=== PATIENT | male | born 1975 | race Hispanic/Latino ===

== ENCOUNTER 2021-06-10 06:12 | Day surgery (SDC) | payer OTHER ==
[~2021-06-10 06:12] MED LIST: BUPIVACAINE/PF (0.25%) 2.5 MG/ML 30 ML VIAL INFILTRATI ONE; LIDOCAINE (1%) 10 MG/1 ML VIAL 20 ML MDV INFILTRATI ONE; SODIUM CHLORIDE 0.9% IRR 1,500 ML BOTTLE IR ONE
[2021-06-10] MEDS ORDERED: LACTATED RINGERS 1,000 ML ONE (06:21)
[2021-06-10] MEDS ORDERED: ceFAZolin/STERILE WATER 2 GM/20 ML SYRINGE IV NR (07:00)
[2021-06-10] MEDS ORDERED: BUPIVACAINE/PF (0.25%) 2.5 MG/ML 30 ML VIAL INFILTRATI ONE ×3 (07:08→08:25)
[2021-06-10] MEDS ORDERED: LIDOCAINE (1%) 10 MG/1 ML VIAL 20 ML MDV ONE (07:08)
[2021-06-10] MEDS ORDERED: ROCURONIUM 50 MG/5 ML INJ IV ONE (07:18)
[2021-06-10] MEDS ORDERED: LIDOCAINE PF 100 MG/5 ML (CARDIAC SYRINGE) IV ONE (07:18)
[2021-06-10] MEDS ORDERED: propofoL 200 MG/20 ML VIAL IV ONE (07:19)
[2021-06-10] MEDS: GABAPENTIN 300 MG CAP PO NR ×2 (07:30→07:35)
[2021-06-10] MEDS ORDERED: GABAPENTIN 300 MG CAP PO NR (07:32)
--- NOTE | 2021-06-10 07:35 | Anesthesia Day of Surgery ---
Anesthesia Day of Surgery - Day of Surgery Patient Examined: Yes Patient H&P Reviewed: Yes Patient is NPO: Yes
--- NOTE | 2021-06-10 07:35 | Anesthesia Consultation ---
Anesthesia Consult and Med Hx Date of service: 06/10/21 - Airway Anesthetic Teeth Evaluation: Good ROM Head & Neck: Adequate Mental/Hyoid Distance: Adequate Mallampati Class: Class II Intubation Access Assessment: Probably Good - Pulmonary Exam CTA: Yes - Cardiac Exam Cardiac Exam: RRR - Pre-Operative Health Status ASA Pre-Surgery Classification: ASA2 Proposed Anesthetic Plan: General - Pulmonary Hx Smoking: No Hx Asthma: No Hx Respiratory Symptoms: No Hx Sleep Apnea: Yes (USES CPAP AT HOME) - Cardiovascular System Hx Hypertension: Yes (ON NORVASC AND ATENOLOL) Hx Coronary Artery Disease: No Hx Heart Attack/AMI: No - Central Nervous System Hx Neuromuscular Disorder: No Hx Psychiatric Problems: Yes (PTSD) - Gastrointestinal Hx Gastroesophageal Reflux Disease: No - Endocrine Hx Renal Disease: No Hx Liver Disease: No Hx Non-Insulin Dependent Diabetes: No Hx Thyroid Disease: No - Hematic Hx Anemia: No Hx Sickle Cell Disease: No - Other Systems Hx Alcohol Use: No Hx Substance Use: No Hx Cancer: No Hx Obesity: No - Additional Comments Anesthesia Medical History Comments: No hx of anesthetic complications
[2021-06-10] MEDS ORDERED: ACETAMINOPHEN 500 MG TAB PO NR (07:38)
[2021-06-10] MEDS ORDERED: HYDROmorphone 1 MG/1 ML INJ IV PRN (07:40)
[2021-06-10] MEDS ORDERED: ONDANSETRON 4 MG/2 ML INJ IV PRN (07:40)
[2021-06-10] MEDS ORDERED: fentaNYL 100 MCG/2 ML INJ ONE (07:56)
[2021-06-10] MEDS ORDERED: MIDAZOLAM 2 MG/2 ML INJ IV NR (08:00)
[2021-06-10] MEDS ORDERED: CELECOXIB 200 MG CAP PO NR (08:00)
[2021-06-10] MEDS ORDERED: dexAMETHasone 20 MG/5 ML VIAL ONE (08:16)
[2021-06-10] MEDS ORDERED: ePHEDrine SULFATE 50 MG/1 ML INJ ONE (08:20)
[2021-06-10] MEDS ORDERED: LIDOCAINE (1%) 10 MG/1 ML VIAL 20 ML MDV INFILTRATI ONE ×2 (08:25)
[2021-06-10] MEDS ORDERED: SODIUM CHLORIDE 0.9% IRR 1,500 ML BOTTLE IR ONE (08:25)
[2021-06-10] MEDS ORDERED: GLYCOPYRROLATE 0.4 MG/2 ML INJ ONE ×3 (08:41→09:26)
[2021-06-10] MEDS ORDERED: PHENYLEPHRINE/NS 1,000 MCG/10 ML SYRINGE (OR USE) IV ONE (08:41)
[2021-06-10] MEDS ORDERED: NEOSTIGMINE 10MG/10 ML INJ MDV ONE (08:46)
[2021-06-10] MEDS ORDERED: LACTATED RINGERS 1,000 ML IV SCH (09:00)
--- NOTE | 2021-06-10 09:40 | Short Stay Summary ---
Short Stay Documentation Date of service: 06/10/21 - History Principal diagnosis: Umbilical hernia H&P: obtained from office - Allergies and Medications Current Medications: Allergies No Known Allergies Allergy (Verified 06/09/21 12:28) Home Medications Medication Instructions Recorded Confirmed Last Taken Type Amlodipine Besylate [Norvasc] 10 mg PO DAILY 06/05/21 06/05/21 Unknown History Zoloft 0 mg PO DAILY 06/05/21 06/05/21 Unknown History atenoloL [Tenormin] 25 mg PO DAILY 06/05/21 06/05/21 Unknown History Active Medications Acetaminophen (Acetaminophen 500 Mg Tab) 1,000 mg PO ONCE NR Stop: 06/10/21 20:00 Cefazolin Sodium (Cefazolin/Sterile Water 2 Gm/20 Ml Syringe) 2 gm IV PREOP NR Stop: 06/10/21 23:59 Celecoxib (Celecoxib 200 Mg Cap) 400 mg PO PREOP NR Stop: 06/10/21 13:00 Gabapentin (Gabapentin 300 Mg Cap) 300 mg PO PREOP NR Stop: 06/10/21 13:00 Hydromorphone HCl (Hydromorphone 1 Mg/1 Ml Inj) 0.25 mg IV Q10MIN PRN PRN Reason: Pain, Moderate (4-6) Stop: 06/10/21 20:00 Hydromorphone HCl (Hydromorphone 1 Mg/1 Ml Inj) 0.5 mg IV Q10MIN PRN PRN Reason: Pain , Severe (7-10) Stop: 06/10/21 20:00 Lactated Ringer's (Lactated Ringers) 1,000 mls @ 125 mls/hr IV DIRECT WILVER Magnesium Oxide (Magnesium Oxide 400 Mg Tab) 400 mg PO QDAY WILVER Midazolam HCl (Midazolam 2 Mg/2 Ml Inj) 2 mg IV PREOP NR Stop: 06/10/21 23:59 Ondansetron HCl (Ondansetron 4 Mg/2 Ml Inj) 4 mg IV ONCE PRN PRN Reason: Nausea And Vomiting Stop: 06/10/21 10:00 - Brief post op/procedure progress note Date of procedure: 06/10/21 Pre-op diagnosis: Umbilical hernia Post-op diagnosis: same Procedure: Open umbilical hernia repair with mesh Anesthesia: GETA, local Findings: 1 cm umbilical hernia containing incarcerated preperitoneal fat Repaired with medium size Ventralex ST mesh Surgeon: VICKY SALCEDO Multisensor Intelligence Officer: DONNIE LAND Estimated blood loss: minimal Pathology: none Condition: stable - Hospital course Hospital course: Patient observed in PACU and discharged home in stable condition when criteria met - Disposition Condition at discharge: Good Disposition: 01 HOME / SELF CARE / HOMELESS Short Stay Discharge Plan Activity: other (No heavy lifting greater than 15 pounds for the next 6 weeks) Diet: regular Wound: open to air, per your surgeon's advice Additional Instructions: KEEP FOLLOW UP APPOINTMENT YOU MAY RESUME YOUR REGULAR DIET --AVOID SPICY OR GREASY FOODS FOR FIRST MEAL DO NOT DRIVE, OPERATE HEAVY EQUIPMENT, OR SIGN LEGAL DOCUMENTS X 24 HRS Follow up with: [facility] [Primary Care Provider] - 7 Days VICKY SALCEDO DO [Staff Physician] - 14 Days Forms: Outpatient Surgery DC Inst. Prescriptions: Gabapentin 300 mg PO BID #6 capsule Ibuprofen [Motrin] 800 mg PO Q8HR PRN #30 tablet PRN Reason: Pain, Moderate (4-6) HYDROcodone/APAP 5-325 [[place] 5/325] 1 each PO Q6HR PRN #20 tablet PRN Reason: Pain , Severe (7-10)
[2021-06-10] MEDS: HYDROmorphone 1 MG/1 ML INJ IV PRN ×2 (09:44→10:06)
[2021-06-10] MEDS ORDERED: MAGNESIUM OXIDE 400 MG TAB PO SCH (10:00)
[2021-06-10 11:20] VITALS: BP 118/72
--- NOTE | 2021-06-10 14:57 | Post Anesthesia Evaluation ---
- Post Anesthesia Evaluation Patient Participated: Yes Airway Patent: Yes Stable Respiratory Function: Yes Nausea/Vomiting: No Temp > 96.8F: Yes Pain Manageable: Yes Adequeate Hydration: Yes Anesthesia Complications: No Block Receding Appropriately: Not Applicable Patient on Ventilator: No
--- NOTE | 2021-06-11 14:32 | Operative Report ---
Operative Report Operative Report: Date of procedure: 06/10/21 Pre-op diagnosis: Umbilical hernia Post-op diagnosis: same Procedure: Open umbilical hernia repair with mesh Anesthesia: LIZZY local Findings: 1 cm umbilical hernia containing incarcerated preperitoneal fat Repaired with medium size Ventralex ST mesh Surgeon: VICKY SALCEDO Sewing Demonstrator: DONNIE LAND Estimated blood loss: minimal Pathology: none Condition: stable Hospital course: Patient observed in PACU and discharged home in stable condition when criteria met HPI indication: Patient is a 46-year-old male who presented to the surgery clinic with an umbilical hernia. The patient was having more discomfort in the area and elected to have this fixed. On exam, the hernia defect was less than 1 cm. All risk, benefits, alternatives to surgery discussed with patient questions answered. Consent was obtained for open umbilical hernia repair with mesh. Procedure in detail: Patient was identified in the preoperative area, taken back to the operating room and placed on the operating room table in supine position. After anesthesia was induced the abdomen was prepped and draped in usual sterile fashion timeout performed. Local anesthetic was infiltrated into the skin at the intended incision site. A semilunar incision was made at the inferior aspect of the umbilicus using a 15 blade. Dissection was carried down through skin and subcutaneous tissue using Bovie electrocautery until the hernia was encountered. The hernia sac and its contents were circumferentially dissected free from the surrounding tissue using a hemostat and electrocautery. The fascia was identified and freed of overlying tissue circumferentially. The fascial defect was 1 cm containing a small amount of preperitoneal fat which was incarcerated in the hernia. The preperitoneal fat was reduced. The preperito popeye space was bluntly dissected in order to make space for insertion of mesh. Once enough space was created a 6.4 cm (medium) ventral Angel ST mesh was inserted into the space and was ensured to be expanded completely and laying flat. This was sutured in place using 2-0 Prolene suture circumferentially. The tabs were cut flush with the fascia. The subcutaneous tissue was irrigated and hemostasis was carefully ensured. The umbilicus was tacked down to the fascia using a 3-0 Vicryl interrupted stitch. The deep dermal layer was closed using 3-0 Vicryl interrupted sutures. The skin was approximated using 4-0 Monocryl subcuticular running stitch and skin glue. After the glue was dry a 4 x 4 fluff gauze was placed in the umbilicus and secured with a Tegaderm. At the end of the case, all sponge, instrument, sharp counts were correct x2. The patient was awoken from anesthesia extubated and taken to PACU in stable condition.
== END 2021-06-10 10:45 | disposition home or self-care (01) ==
LOC: OR 06:12
PROVIDERS: ATTEND Surgery
DX: K42.0 Umbilical hernia with obstruction, without gangrene (principal); G47.30 Sleep apnea, unspecified; I10 Essential (primary) hypertension; F41.9 Anxiety disorder, unspecified; Z79.899 Other long term (current) drug therapy; Z98.890 Other specified postprocedural states; Z20.822 Contact with and (suspected) exposure to COVID-19
CPT/HCPCS: 49587; C1781; J0690; J1100; J1170; J1815; J2001; J2250; J2370; J2405; J2704; J2710; J3010; J3490; J7120; U0003